=== PATIENT | male | born 1995 | race African-American/Black ===

== ENCOUNTER 2021-05-08 11:20 | Emergency (ER) | payer SELFPAY ==
[~2021-05-08] VITALS: Ht 165.1 cm; Wt 59.0 kg
[2021-05-08 11:24] VITALS: BP 139/75
--- NOTE | 2021-05-08 11:49 | NUR ---
Called to room patient. NO Longer in [facility]- [facility]
== END 2021-05-08 11:51 | disposition home or self-care (01) ==
LOC: ER 11:21
DX: Z53.21 Procedure and treatment not carried out due to patient leaving prior to being seen by health care provider (principal); F15.90 Other stimulant use, unspecified, uncomplicated; F41.9 Anxiety disorder, unspecified

== ENCOUNTER 2021-09-14 23:33 | Emergency (ER) | payer OTHER ==
[~2021-09-14] VITALS: Ht 180.3 cm; Wt 72.6 kg
[2021-09-15] MEDS ORDERED: LORAZEPAM 1 MG TABLET ONE (00:50)
[2021-09-15] MEDS ORDERED: LORAZEPAM 1 MG TABLET PO ONE (01:00)
--- NOTE | 2021-09-15 01:04 | NUR ---
BIB AND [facility] TO ER BED 13. AOX4. NOT IN RESP DISTRESS. AMBULATORY. OBNOXIOUS. BROUGHT IN FOR METH USE. PT ADMITS TO DOING IT. MD WAS AT THE BEDSIDE FOR EVAL. ORDERS RECEIVED AND MEDICATED ORDERED
[2021-09-15] MEDS ORDERED: IV NS 0.9% 1,000 ML BAG IV ONE (02:00)
--- NOTE | 2021-09-15 05:00 | NUR ---
Patient discharged to home in stable condition. Written and verbal after care instructions given. Patient verbalizes understanding of instruction.IV removed. Catheter intact and site benign. Pressure and 4x4 applied to site. No bleeding noted. Pt ambulatory with a steady gait
[2021-09-15 05:03] VITALS: BP 144/75
== END 2021-09-15 05:03 | disposition home or self-care (01) ==
LOC: ER 23:36
DX: F15.121 Other stimulant abuse with intoxication delirium (principal); F19.221 Other psychoactive substance dependence with intoxication delirium; Y92.89 Other specified places as the place of occurrence of the external cause; F17.200 Nicotine dependence, unspecified, uncomplicated
CPT/HCPCS: 96360; 99283; J7030